=== PATIENT | female | born 1970 | race African-American/Black ===

== ENCOUNTER → 2020-08-18 | Outpatient (CLI) | payer OTHER ==
[2014-11-27 16:42] VITALS: BP 167/103
[~2020-08-18] MED LIST: ALBU2.5V14 NEB; BUDE10.2 IH; OLME1TAB31 PO
== END ==
LOC: LAB 10:14
PROVIDERS: ATTEND Orthopaedic Surgery
DX: Z01.812 Encounter for preprocedural laboratory examination (principal); S83.232A Complex tear of medial meniscus, current injury, left knee, initial encounter; Z20.822 Contact with and (suspected) exposure to COVID-19; X58.XXXA Exposure to other specified factors, initial encounter; Y93.89 Activity, other specified; Y92.89 Other specified places as the place of occurrence of the external cause; Y99.8 Other external cause status
CPT/HCPCS: U0003

== ENCOUNTER 2020-08-22 08:57 | Day surgery (SDC) | payer OTHER ==
[~2020-08-22] VITALS: Ht 158.8 cm; Wt 121.6 kg
[~2020-08-22 08:57] MED LIST changes: -ALBU2.5V14 NEB; -BUDE10.2 IH; +DEXAMETHASONE SOD PHOS 4 MG/ML VIAL ONE; +HYDROmorphone 2 MG/ML VIAL IVP PRN; +IV RINGERS,LACTATED 1000ML 1,000 ML IV SCH; +KETOROLAC 30 MG/ML VIAL. ONE; +LIDOCAINE 2% PF 5 ML VIAL. ONE; +MORPHINE SULFATE 2 MG/ML VIAL. IVP PRN; -OLME1TAB31 PO; +ONDANSETRON PF 4 MG/2 ML VIAL. ONE; +PROCHLORPERAZINE 10 MG/2 ML VIAL. IVP PRN; +PROPOFOL 10 MG/ML (20ML) VIAL. IV ONE; +SEVOFLURANE > 120 MINUTES. IH ONE; +fentaNYL PF VIAL 100 MCG/2 ML VIAL IVP PRN
[2020-08-22] MEDS ORDERED: EPINEPHrine VIAL 30 MG/30 ML VIAL ONE (09:49)
[2020-08-22] MEDS ORDERED: BUPIVACAINE-EPI 0.25% 30 ML VIAL KIT. ONE ×2 (09:49→09:50)
[2020-08-22] MEDS ORDERED: ALBU2.5V14 NEB (10:11)
[2020-08-22] MEDS ORDERED: BUDE10.2 IH (10:12)
[2020-08-22] MEDS ORDERED: OLME1TAB31 PO (10:12)
[2020-08-22] MEDS ORDERED: fentaNYL PF VIAL 100 MCG/2 ML VIAL ONE ×2 (11:28→12:44)
[2020-08-22] MEDS ORDERED: ePHEDrine PF IN SALINE 50 MG/10 ML SYRINGE. IV ONE (11:49)
[2020-08-22] MEDS ORDERED: ceFAZolin SODIUM IV Push 1 GM VIAL. IVP ONE (11:50)
--- NOTE | 2020-08-22 12:20 | PDOC4 ---
Operative Note Operative Note Date of Procedure: August 22, 2020 Preoperative Diagnosis: left knee medial meniscus tear Postoperative Diagnosis: complex tear of medial meniscus, current injury, left knee, initial encounter [id number] Procedures Performed: left knee arthroscopy, surgical, with meniscectomy, MEDIAL, including meniscal shaving, including debridement/shaving of articular cartilage (chondroplasty) CPT 83595 Surgeon: Kevan Hernández MD Licensed Mental Health Professional: POPPY Fuentes Anesthesia: General Estimated Blood Loss: 20 mL Specimens: none Drains: none Complications: none Tourniquet time: 27 minutes at 350 mm Hg Indications for Procedure: The patient is a 50-year-old with left knee pain, unrelieved with nonoperative treatment. Exam and MRI are consistent with a meniscus tear. We talked about the risks and benefits of proceeding with an arthroscopic procedure. We talked about potential risks of ongoing pain, progressive arthritis, bleeding, infection, blood clots, or other potential surgical or anesthetic complications. All of the patient's questions about surgery were answered and they desired to proceed. Written consent was obtained. Description of Operation: The patient was identified in the preoperative holding area. The correct left knee was marked by me. The patient was taken to the operating room, where a general anesthetic was used. Preoperative antibiotics were given intravenously. A time-out procedure was performed. A tourniquet was placed on the upper thigh. Local anesthetic 20 mL of 0.25% bupivacaine was injected using sterile technique into the knee joint. The limb was prepared circumferentially with ChloraPrep solution and sterile waterproof arthroscopy drapes were applied. The limb was exsanguinated with an Esmarch bandage and the tourniquet was inflated. Lateral and medial arthroscopy portals were established. The medial meniscus showed a complex unrepairable tear with unstable flaps. 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 The lateral tibiofemoral joint showed a normal lateral meniscus, so no lateral meniscectomy was required.The lateral articular surfaces showed chondromalacia [place] grade I, so no chondroplasty was required. The patellofemoral joint showed chondromalacia [place] grade II, so a shaving chondroplasty was performed removing loose unstable fragments of articular cartilage. The suprapatellar pouch, medial and lateral gutters were free of loose bodies. Copious irrigation was used to drain all meniscal and chondral fragments, and the knee was drained of fluid. The portals were closed with #3-0 Prolene interrupted sutures. Additional local anesthetic, 30 mL of 0.25% bupivacaine with epinephrine was injected. A bulky sterile dressing was applied and the tourniquet was released. Needle and sponge counts were correct and there were no apparent complications. KEVAN HERNÁNDEZ MD Aug 22, 2020 12:20
[2020-08-22] MEDS ORDERED: HYDROcodone/APAP 7.5/325MG 1 TAB TABLET PO PRN ×2 (12:45)
[2020-08-22] MEDS: fentaNYL PF VIAL 100 MCG/2 ML VIAL IVP PRN ×3 (12:46→13:13)
[2020-08-22] MEDS ORDERED: MORPHINE SULFATE 2 MG/ML VIAL. ONE (13:13)
[2020-08-22 13:29] VITALS: BP 118/69
== END 2020-08-22 14:28 | disposition home or self-care (01) ==
LOC: SURG 08:57
PROVIDERS: ATTEND Orthopaedic Surgery
DX: S83.232A Complex tear of medial meniscus, current injury, left knee, initial encounter (principal); M94.262 Chondromalacia, left knee; I10 Essential (primary) hypertension; J45.909 Unspecified asthma, uncomplicated; E66.9 Obesity, unspecified; M19.90 Unspecified osteoarthritis, unspecified site; Z98.51 Tubal ligation status; Z98.890 Other specified postprocedural states; Z79.899 Other long term (current) drug therapy; Z72.89 Other problems related to lifestyle; X58.XXXA Exposure to other specified factors, initial encounter; Y93.89 Activity, other specified; Y92.89 Other specified places as the place of occurrence of the external cause; Y99.8 Other external cause status
CPT/HCPCS: 29881; 81025; 97116; 97162; 97530; J0171; J0690; J1100; J1885; J2270; J2405; J2704; J3010